=== PATIENT | female | born 1990 | race Caucasian/White ===

== ENCOUNTER 2024-05-12 20:22 | Emergency (ER) | payer SELFPAY, OTHER ==
[2024-05-12 20:23] VITALS: BP 129/93; PULSE 86; RESP 18; TEMP 36.1; O2SAT 99
--- NOTE | 2024-05-12 20:55 | EX.ED.DYSGE1 ---
HPI <MEL Boswell - Last Filed: 05/12/24 22:34> History of Present Illness Chief Complaint: General Illness Narrative Narrative: Patient is a 33-year-old female with no significant medical history presents to the emergency department for multiple symptoms. Patient states that 3 to 4 days ago, she was stung by bee in her right side of her face that she thinks, she then states that she has been having some facial swelling, right shoulder swelling. Over the last 24 hours, she has been feeling hot, cold, sick to her stomach. She states last evening, she had to put ice on her shoulder secondary to the swelling. She is unsure if she is having a reaction to the bee venom. Here for evaluation. Denies any sickness around the household. PFSH <MEL Boswell - Last Filed: 05/12/24 22:34> [facility] Home Medications ?Medication ?Instructions ?Recorded ?Last Taken ?Type amoxicillin 500 mg tablet 500 mg PO Q8H #30 tabs 12/21/13 Unknown Rx thyroid (pork) 90 mg tablet 90 mg PO DAILY 12/21/13 Unknown History ([place] Thyroid) ondansetron 4 mg disintegrating 4 mg PO Q8H PRN PRN Nausea #10 tabs 05/12/24 Unknown Rx tablet Allergy/AdvReac Type Severity Reaction Status Date / Time No Known Allergies Allergy Verified 05/12/24 20:23 Social History Smoking Status: Never smoker ROS <MEL Boswell - Last Filed: 05/12/24 22:34> ROS ED ROS Narrative Constitutional: Negative for weight loss, weakness. Positive fever and chills Eyes: Negative for vision loss, vision change, double vision ENT: Negative for any ear pain. Positive right-sided congestion, sore throat Cardiovascular: Negative for any chest pain, tightness, palpitations Respiratory: Negative for any cough, sputum production, hemoptysis, dyspnea, dyspnea on exertion, orthopnea Gastrointestinal: Negative for any abdominal pain, vomiting, diarrhea, constipation, blood in stool, blood in vomit. Positive for nausea : Negative for any urinary frequency, dysuria, retention, blood in urine Muscle skeletal: Negative for any neck pain, back pain Neurological: Negative for any headache, syncope, dizziness Skin: Negative for any rashes, itching, abrasions, lacerations Psychiatric: Negative for any depression, anxiety, stress, suicidal ideation, homicidal ideation Hematologic: Negative for any excessive bruising, easy bleeding EXAM <MEL Boswell - Last Filed: 05/12/24 22:34> Physical Exam Narrative Exam Narrative: Vital signs reviewed. Oral temperature was unremarkable. HEET: Head normocephalic atraumatic, TMs clear bilaterally. Posterior pharynx is clear, moist mucous membranes. Nares clear bilaterally. Neck: Supple with no lymphadenopathy or tenderness. No signs of meningismus. Cardiac: Regular rate and rhythm no murmurs gallops or rubs, equal peripheral pulses bilaterally. Respiratory: Lungs clear to auscultation bilaterally. No chest tenderness. Abdomen: Soft, nontender, nondistended. No abdominal bruit or pulsatile masses. No hepatosplenomegaly Extremities: No peripheral edema, no signs of gross trauma or deformity. Active full range of motion of all extremities. Neuro: Cranial nerves II through XII intact, no focal neurological deficits. Skin: Clean dry and intact with no rash, purpura, petechiae, vesicles or pustules. Backs/flank: No CVA tenderness, no midline spinal tenderness, no deformity. Psych: Normal mood and affect. No SI, HI or acute psychosis. Const Vital Signs: 05/12/24 20:23 Temperature 97 F L Temperature Source Temporal Pulse Rate 86 Respiratory Rate 18 Blood Pressure 129/93 H Blood Pressure Mean 105 Pulse Ox 99 Oxygen Delivery Method Room Air <Dr. Dane Terry MD - Last Filed: 05/16/24 08:03> Physical Exam Const Vital Signs: 05/12/24 20:23 Temperature 97 F L Temperature Source Temporal Pulse Rate 86 Respiratory Rate 18 Blood Pressure 129/93 H Blood Pressure Mean 105 Pulse Ox 99 Oxygen Delivery Method Room Air [facility] <MEL Boswell - Last Filed: 05/12/24 22:34> [facility] Lab Data Labs: Laboratory Results - last 24 hr 05/12/24 20:55 WBC 6.1 RBC 4.29 Hgb 12.9 Hct 38.5 MCV 89.7 MCH 30.1 MCHC 33.5 RDW Std Deviation 39.7 RDW Coeff of Maribel 12.2 Plt Count 285 MPV 10.5 Immature Gran % (Auto) 0.300 Neut % (Auto) 59.8 Lymph % (Auto) 27.4 [place] % (Auto) 10.9 H Eos % (Auto) 1.3 Baso % (Auto) 0.3 Absolute Neuts (auto) 3.6 Absolute Lymphs (auto) 1.66 Nucleated RBC % 0 Sodium 141 Potassium 3.8 Chloride 111 H Carbon Dioxide 26.0 Anion Gap 4 L BUN 12 Creatinine 0.92 Est GFR (MDRD) Af Amer 89 Est GFR (MDRD) Non-Af 73 BUN/Creatinine Ratio 13.0 Glucose 92 Calcium 8.7 Serum , Qual NEGATIVE Treatment and Re-Evaluation :: Differential diagnosis includes however is not limited to: Anaphylaxis, viral-like syndrome, acute sinusitis, electrode abnormality, COVID-19, influenza, RSV Patient appears generally well, patient appears nontoxic, vital signs are stable. Presenting to the emergency department for feeling of hot, cold, intermittent swelling to the right shoulder after a bee sting. Physical examination showed no swelling or inflammatory response. Patient will receive basic laboratory values, CBC, BMP, serum . Patient received COVID-19 influenza RSV swab. IV fluids, Zofran and Toradol be ordered. Patient will be reevaluated Patient is not , patient CBC was unremarkable, chemistries were unremarkable. Patient on reevaluation after the IV fluids, Zofran and Toradol felt much better. Patient is negative for any COVID-19, influenza, RSV. At this time, patient be diagnosed with dehydration, possible viral-like syndrome. She instructed to maintain hydration at home, she will be given Zofran for home. Instructed return for any worsening symptoms. Happy with the plan of care, stable for discharge. <Dr. Dane Terry MD - Last Filed: 05/16/24 08:03> [facility] Narrative Medical decision making narrative: Patient seen and evaluated with TONI. I personally interviewed and examined the patient. I was involved in all aspects of patient's orders, interpretation of results, and treatment. History patient was stung. She has had a multitude of symptoms. Patient is concerned that she is having allergic reaction. Patient does not have hives. There is no swelling to suggest angioedema. There is no wheezing, nausea vomit diarrhea or orthostatic symptoms. Patient's vitals are unremarkable. HEENT exam is unremarkable. Lungs are clear to auscultation. Heart is regular. Rate is normal. Alert and orient x 3. Neuroexam is normal. Differential diagnoses include viral illness, generalized weakness, anemia, doubt allergic reaction to envenomation by bee etc. White count is normal. Basic metabolic panel is unremarkable. Serum test is negative. Patient was informed the cause of her symptoms is unknown. Lab Data Labs: Laboratory Results - last 24 hr 05/12/24 20:55 WBC 6.1 RBC 4.29 Hgb 12.9 Hct 38.5 MCV 89.7 MCH 30.1 MCHC 33.5 RDW Std Deviation 39.7 RDW Coeff of Maribel 12.2 Plt Count 285 MPV 10.5 Immature Gran % (Auto) 0.300 Neut % (Auto) 59.8 Lymph % (Auto) 27.4 [place] % (Auto) 10.9 H Eos % (Auto) 1.3 Baso % (Auto) 0.3 Absolute Neuts (auto) 3.6 Absolute Lymphs (auto) 1.66 Nucleated RBC % 0 Sodium 141 Potassium 3.8 Chloride 111 H Carbon Dioxide 26.0 Anion Gap 4 L BUN 12 Creatinine 0.92 Est GFR (MDRD) Af Amer 89 Est GFR (MDRD) Non-Af 73 BUN/Creatinine Ratio 13.0 Glucose 92 Calcium 8.7 Serum , Qual NEGATIVE Discharge Plan Triage Chief Complaint: General Illness Other Complaint: Allergic Reaction ED Midlevel Provider: Daniel Sethi ED Provider: Dane Terry Dx/Rx/DC Orders Clinical Impression: Acute dehydration, Viral syndrome Instructions: ED Dehydration (Adult), ED Viral Syndrome (Adult) Prescriptions: New ondansetron 4 mg tablet,disintegrating 4 mg PO Q8H PRN PRN (Reason: Nausea) Qty: 10 0RF No Action thyroid (pork) [[place] Thyroid] 90 MG tablet 90 mg PO DAILY amoxicillin 500 MG tablet 500 mg PO Q8H Qty: 30 0RF Primary Care Provider: Care Physician,Alicja Primary Referrals: Daniel Olivo MD [Med Staff - Active Staff] - Care Physician,No Primary [Primary Care Provider] - Activity Restrictions/Additional Instructions: Please increase your fluid intake, use the Zofran as needed. Return for any worsening symptoms. Print Language: Faroese Disposition Disposition: Home, Self Care Discharge Date/Time: 05/12/24 22:53
[2024-05-12] MEDS: Ondansetron 4 MG/2 ML Vial IV (21:04)
[2024-05-12] MEDS: 0.9% Normal Saline (1000mL) 1,000 ML 999 ML IV (21:04)
[2024-05-12] MEDS: Ketorolac 15 MG/ML Vial IV (21:04)
[2024-05-12 21:20] LABS: Absolute Lymphocyte Count 1.66 X10^3/uL (0.83-4.51); Absolute Neutrophil Count 3.6 X10^3/uL (2.0-7.7); Basophil# 0.02 X10^3/uL; Basophil% 0.3 % (0-1); Eosinophil# 0.08 X10^3/uL; Eosinophils% 1.3 % (0-5); Hematocrit 38.5 % (37-47); Hemoglobin 12.9 g/dL (12.0-15.0); Lymphocyte # 1.66 X10^3/ul (0.83-4.51); Lymphocyte % 27.4 % (19-41); Mean Corp Hgb Conc 33.5 g/dL (32-36); Mean Corpuscular Hgb 30.1 pg (27.0-32.0); Mean Corpuscular Volume 89.7 fL (81-99); Mean Platelet Vol. 10.5 fl (6.2-12.0); Monocyte# 0.66 X10^3/uL; Monocyte% 10.9 % (0-10); NRBC Flagged by Analyzer 0 % (0-5); Neutrophil # 3.61 X10^3/uL (2.7-7.7); Neutrophil % 59.8 % (47-70); Platelet Count 285 K/mm3 (150-450); RBC Distribution Width CV 12.2 % (11.6-14.6); RBC Distribution Width SD 39.7 fl (35.1-43.9); Red Blood Count 4.29 M/mm3 (4.2-5.4); White Blood Count 6.1 K/mm3 (4.4-11.0)
[2024-05-12 21:25] LABS: Internal QC Validated? YES +Cl - CLEAR BKGD; Pregnancy, Serum, hCG Quali. NEGATIVE Negative; Record Kit Lot#, Serum Preg. 772476
[2024-05-12 21:27] LABS: Anion Gap 4 (5-15); BUN 12 mg/dL (7-18); Calcium,Total 8.7 mg/dL (8.5-10.1); Chloride 111 mmol/L (98-107); Creatinine, Serum 0.92 mg/dL (0.55-1.02); EST Glomerular Filtration Rate 73 mL/min (>60); Est Glom Filt Rate - Afr Amer 89 mL/min (>60); Glucose 92 mg/dL (74-106); Potassium 3.8 mmol/L (3.5-5.1); Sodium Level 141 mmol/L (136-145)
== END 2024-05-12 22:53 | disposition home or self-care (01) ==
PROVIDERS: Nurse Practitioner; Emergency Provider Emergency Medicine; Visit Provider Emergency Medicine
DX: E86.0 Dehydration (principal); B34.9 Viral infection, unspecified; R11.0 Nausea
CPT/HCPCS: 80048; 84703; 85025; 87631; 96361; 96374; 96375; 99283; J7030; A4216; J2405